=== PATIENT | female | born 1990 | race Caucasian/White ===

== ENCOUNTER 2023-11-17 08:24 | Inpatient (IN) ==
[2023-11-17] MEDS ORDERED: LIDOCAINE 1% LOCAL 20 ML VIAL INFIL PRN (09:01)
[2023-11-17] MEDS ORDERED: OXYTOCIN 30 UNITS/NSS 30 UNITS/500 ML BAG IV PRN ×2 (09:01→15:00)
[2023-11-17] MEDS: LACTATED RINGER'S 1,000 ML IV PRN (09:11)
--- NOTE | 2023-11-17 09:13 | History & Physical Report ---
Date of Service November 17, 2023 Assessment & Plan (1) Normal labor: Plan admit, labs, iv. desires epidural. plan arom thereafter. fhts categ 1. History of Present Illness Chief Complaint: labor Primary Care Provider: NO PCP 33yo at 39+wks ega presents to LD with cc of regular ctx. Patient denies rom, vb. +FM. PNC uncomplicated. PNL rhpos, ri, gbs neg OBH: g1 GYNH: nl paps, no stds Allergies Allergy/AdvReac Type Severity Reaction Status Date / Time No Known Allergies Allergy Verified 11/14/23 11:02 Home Medications Medication Instructions Recorded Confirmed Type Lactobacillus acidophilus PO 04/08/23 11/14/23 History [Probiotic] 21-iron fu-folic acid PO 04/08/23 11/14/23 History [ Complete] vitamin B complex PO 04/08/23 11/14/23 History Patient History Medical History (Updated 11/17/23 @ 09:06 by Moni Christianson MD, FACOG) Varicella vaccination Surgical History S/P wisdom tooth extraction Family History Mother Breast cancer age 44 Denies family history of Ovarian cancer Colorectal cancer Social History Smoking Status: Never smoker Do You Dip or Chew Tobacco: No; Hx Alcohol Use: No Hx Substance Use: No Preferred Language: French Communication Ability: Effective Billing Clinician Required: No Beliefs That Will Affect Care: None marital status: Single marital status details: Francis Terry (37) [phone] Current Living Situation: Significant Other Current Living Situation Comment: Lives with boyfriend current occupational status: employed 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 Other Information That Helps Us Care for You: No Feels Safe at Home: Yes Safety Concerns: Feels Safe At This Time Assistive Devices: None Review of Systems as per Subjective / HPI Physical Exam Constitutional: WD/WN, vitals as above Respiratory: normal respiratory effort, lungs clear to auscultation Cardiovascular: Rate/Rhythm: regular rate and regular rhythm Gastrointestinal (Abdomen): soft gravid nt efw 7-8# Musculoskeletal: tr edema Neurologic: grossly normal Psychiatric: A+Ox3, euthymic affect Genitourinary: Manual OB Exam: + cervical dilation 6 cm, + cervical effacement 100% and + station -1 OB Exam Monitor Tracing: + external FHT monitor used, + external uterine monitor used (q2), + category I and + normal FHT variability Results & Data Vital Signs (Past 12 Hours) Vital Signs Temp Pulse Resp BP 11/17/23 08:42 75 128/77 11/17/23 08:37 98.2 F 75 16 128/77 Coding Level of Care Code None Diagnoses Normal labor O80; Z37.9
[2023-11-17 09:42] LABS: Hemoglobin 12.2 g/dl (12.0-16.0); Mean Corpuscular Hemoglobin 31.4 pg (25.0-34.0); Mean Corpuscular Hgb Conc 33.9 g/dL (32.0-36.0); Mean Corpuscular Volume 92.8 fL (80.0-100.0); Mean Platelet Volume 10.4 fL (9.4-12.4); Platelet Count 203 K/uL (130-400); RDW Coefficient of Variation 13.9 % (11.5-14.5); RDW Standard Deviation 46.9 fL (36.4-46.3); Red Blood Count 3.88 M/uL (4.20-5.40); White Blood Count 9.88 K/ul (4.8-10.8)
[2023-11-17] MEDS ORDERED: SODIUM CHLORIDE 0.9% PF INJ 10 ML VIAL EPI PRN (10:01)
[2023-11-17] MEDS ORDERED: NALBUPHINE HCL 5 MG in SYRINGE 0 ML IV PRN (10:01)
[2023-11-17] MEDS ORDERED: ROPIVACAINE 0.5% PF 5 MG/ML 20 ML VIAL EPI PRN (10:01)
[2023-11-17] MEDS ORDERED: fentaNYL citrate PF 100 MCG/2 ML VIAL EPI PRN (10:01)
[2023-11-17] MEDS ORDERED: LIDOCAINE 2% MPF LOCAL 5 ML VIAL EPI PRN (10:01)
[2023-11-17] MEDS ORDERED: BUPIVACAINE 0.25% PF 30 ML VIAL EPI PRN (10:01)
[2023-11-17] MEDS ORDERED: diphenhydrAMINE 50 MG/ML VIAL IV PRN (10:01)
[2023-11-17] MEDS ORDERED: NALOXONE HCL 0.4 MG/1 ML VIAL/CARP IV PRN (10:01)
[2023-11-17] MEDS ORDERED: NALOXONE HCL 1 MG in SODIUM CHLORIDE 0.9% 1,000 ML IV PRN (10:01)
[2023-11-17] MEDS ORDERED: ePHEDrine sulfate 50 MG/ML AMP IV PRN (10:01)
[2023-11-17] MEDS ORDERED: fentANYL 2 MCG/ML BUPIVacaine 0.125%-NSS 100ML BAG EPI PRN (10:01)
--- NOTE | 2023-11-17 10:01 | Anesthesiology Consultation ---
Date of Service November 17, 2023 Assessment & Plan (1) Encounter for pre-operative examination: Chart Review Chart Review: Patient NOT seen in Pre Admission Testing and Acceptable Risk for Labor Epidural Consults Requested none History Height/Weight Height: 5 ft 6 in Weight: 82.554 kg Allergies Allergy/AdvReac Type Severity Reaction Status Date / Time No Known Allergies Allergy Verified 11/14/23 11:02 Medications Home Medications Medication Instructions Recorded Confirmed Last Taken Lactobacillus acidophilus PO 04/08/23 11/14/23 11/16/23 [Probiotic] 21-iron fu-folic acid PO 04/08/23 11/14/23 11/16/23 [ Complete] vitamin B complex PO 04/08/23 11/14/23 11/16/23 Active Medications Generic Name Dose Route Start Last Admin Trade Name Freq PRN Reason Stop Dose Admin Lactated Ringer's 1,000 mls @ 125 mls/hr 11/17/23 09:01 11/17/23 09:11 Lr IV 11/19/23 09:00 999 mls/hr .Q8H PRN Administration L&D Protocol Protocol Past Medical History Medical History Varicella vaccination Past Family History Family History Mother Breast cancer age 44 Denies family history of Ovarian cancer Colorectal cancer Past Surgical History Surgical History S/P wisdom tooth extraction Social History Smoking Status: Never smoker Do You Dip or Chew Tobacco: No Hx Alcohol Use: No Hx Substance Use: No Physical Exam Vital Signs Last Vital Signs Temp 98.2 F 11/17/23 08:37 Pulse 75 11/17/23 08:42 Resp 16 11/17/23 08:37 BP 128/77 11/17/23 08:42 Testing Laboratory Results 11/17/23 09:21
[2023-11-17] MEDS: fentANYL 2 MCG/ML BUPIVacaine 0.125%-NSS 100ML BAG ONE (10:21)
[2023-11-17] MEDS: LIDOCAINE 2%/EPINEPHRINE 1:200,000 20 ML PF ONE (10:30)
[2023-11-17] MEDS: BUPIVACAINE 0.25% PF 30 ML VIAL ONE (10:31)
[2023-11-17] MEDS: SODIUM CHLORIDE 0.9% PF INJ 10 ML VIAL ONE (11:28)
[2023-11-17] MEDS: fentaNYL citrate PF 100 MCG/2 ML VIAL ONE (11:28)
[2023-11-17] MEDS: fentaNYL citrate PF 100 MCG/2 ML VIAL EPI STA (11:29)
[2023-11-17] MEDS: SODIUM CHLORIDE 0.9% PF INJ 10 ML VIAL EPI STA (11:29)
[2023-11-17] MEDS: BUPIVACAINE 0.25% PF 30 ML VIAL EPI STA (11:29)
[2023-11-17] MEDS: LIDOCAINE 2%/EPINEPHRINE 1:200,000 20 ML PF EPI STA (11:29)
--- NOTE | 2023-11-17 11:47 | Labor Progress Brief Note ---
Date of Service November 17, 2023 Subjective comfortable with epidural Assessment & Plan (1) Normal labor: Plan good cx change. fhts categ 1. anticip Physical Exam Constitutional: WD/WN, vitals as above Genitourinary: Manual OB Exam: + cervical dilation 8 cm, + cervical effacement 100%, + station -1 and + amniotic fluid (arom) clear OB Exam Monitor Tracing: + external FHT monitor used, + external uterine monitor used, + category I and + normal FHT variability Results & Data Vital Signs (Past 12 Hours) Vital Signs Temp Pulse Resp BP Pulse Ox 11/17/23 11:42 65 97 11/17/23 11:37 73 96/57 L 100 11/17/23 11:32 78 100 11/17/23 11:30 18 11/17/23 11:30 18 11/17/23 11:27 82 100 11/17/23 11:23 71 98/56 L 11/17/23 11:22 60 100 11/17/23 11:17 90 100 11/17/23 11:15 18 11/17/23 11:15 18 11/17/23 11:12 89 99 11/17/23 11:07 100 11/17/23 11:07 67 11/17/23 11:07 79 100/59 L 11/17/23 11:03 55 L 99/59 L 11/17/23 11:02 56 L 100 11/17/23 11:00 18 11/17/23 11:00 18 11/17/23 10:57 100 11/17/23 10:57 61 11/17/23 10:57 71 99/57 L 11/17/23 10:52 100 11/17/23 10:52 76 11/17/23 10:52 80 97/58 L 11/17/23 10:48 57 L 100/56 L 11/17/23 10:47 61 100 11/17/23 10:45 18 11/17/23 10:45 18 11/17/23 10:42 62 100 11/17/23 10:41 71 104/62 11/17/23 10:39 68 108/61 11/17/23 10:37 74 108/62 100 11/17/23 10:35 68 103/60 11/17/23 10:33 82 101/59 L 11/17/23 10:32 93 H 100 11/17/23 10:31 68 101/57 L 11/17/23 10:27 67 99 11/17/23 10:25 80 102/58 L 11/17/23 10:22 69 100 11/17/23 10:17 77 100 11/17/23 10:12 85 97 11/17/23 10:07 70 98 11/17/23 08:42 75 128/77 11/17/23 08:37 98.2 F 75 16 128/77 Coding Level of Care Code None Diagnoses Normal labor O80; Z37.9
--- NOTE | 2023-11-17 13:47 | Labor Progress Brief Note ---
Date of Service November 17, 2023 Subjective pt comfortable, feels pressure Assessment & Plan (1) Normal labor: Plan cont 2nd stage. fhts categ 1. Physical Exam Constitutional: WD/WN, vitals as above Genitourinary: Manual OB Exam: + cervical dilation 10 cm, + cervical effacement 100% and + station (pushing effectively) + 3 OB Exam Monitor Tracing: + external FHT monitor used, + external uterine monitor used, + category I and + normal FHT variability Results & Data Vital Signs (Past 12 Hours) Vital Signs Temp Pulse Resp BP Pulse Ox 11/17/23 13:44 95 H 86 L 11/17/23 13:42 91 H 100 11/17/23 13:37 100 11/17/23 13:37 93 H 11/17/23 13:37 85 91 11/17/23 13:32 67 100 11/17/23 13:27 65 100 11/17/23 13:23 72 99/55 L 11/17/23 13:22 69 100 11/17/23 13:17 65 100 11/17/23 13:12 62 100 11/17/23 13:07 72 96/60 L 100 11/17/23 13:02 62 100 11/17/23 13:00 18 11/17/23 13:00 18 11/17/23 12:57 66 100 11/17/23 12:53 77 102/66 11/17/23 12:52 63 100 11/17/23 12:47 66 100 11/17/23 12:42 60 100 11/17/23 12:38 67 101/61 11/17/23 12:37 64 100 11/17/23 12:32 69 100 11/17/23 12:30 18 11/17/23 12:30 18 11/17/23 12:27 73 100 11/17/23 12:23 75 101/59 L 11/17/23 12:22 75 100 11/17/23 12:17 71 100 11/17/23 12:12 65 100 11/17/23 12:08 55 L 104/60 11/17/23 12:07 59 L 100 11/17/23 12:02 60 99 11/17/23 12:00 97.7 F 11/17/23 11:57 56 L 100 11/17/23 11:53 83 100/61 11/17/23 11:52 76 99 11/17/23 11:47 64 100 11/17/23 11:42 65 97 11/17/23 11:37 73 96/57 L 100 11/17/23 11:32 78 100 11/17/23 11:30 18 11/17/23 11:30 18 11/17/23 11:27 82 100 11/17/23 11:23 71 98/56 L 11/17/23 11:22 60 100 11/17/23 11:17 90 100 11/17/23 11:15 18 11/17/23 11:15 18 11/17/23 11:12 89 99 11/17/23 11:07 100 11/17/23 11:07 67 11/17/23 11:07 79 100/59 L 11/17/23 11:03 55 L 99/59 L 11/17/23 11:02 56 L 100 11/17/23 11:00 18 11/17/23 11:00 18 11/17/23 10:57 100 11/17/23 10:57 61 11/17/23 10:57 71 99/57 L 11/17/23 10:52 100 11/17/23 10:52 76 11/17/23 10:52 80 97/58 L 11/17/23 10:48 57 L 100/56 L 11/17/23 10:47 61 100 11/17/23 10:45 18 11/17/23 10:45 18 11/17/23 10:42 62 100 11/17/23 10:41 71 104/62 11/17/23 10:39 68 108/61 11/17/23 10:37 74 108/62 100 11/17/23 10:35 68 103/60 11/17/23 10:33 82 101/59 L 11/17/23 10:32 93 H 100 11/17/23 10:31 68 101/57 L 11/17/23 10:27 67 99 11/17/23 10:25 80 102/58 L 11/17/23 10:22 69 100 11/17/23 10:17 77 100 11/17/23 10:12 85 97 11/17/23 10:07 70 98 11/17/23 08:42 75 128/77 11/17/23 08:37 98.2 F 75 16 128/77 Coding Level of Care Code None Diagnoses Normal labor O80; Z37.9
[2023-11-17] MEDS: miSOPROStoL 200 MCG TAB PR ONE ×2 (14:14→16:26)
--- NOTE | 2023-11-17 14:29 | Delivery Summary ---
Vaginal Delivery Summary Date of Service November 17, 2023 Vaginal Delivery Summary and 2nd Degree LAC The patient dilated to complete and pushed to deliver a viable male infant Apgars 8 and 9 via over 2nd degree perineal laceration. Mouth and nose bulb suctioned at perineum. Shoulders and body delivered with ease. Infant was vigorous and crying at . Cord clamped at 30 seconds of life and to maternal abdomen where the cord was then doubly clamped and cut. Placenta delivered spontaneously and intact, three-vessel cord. Hemostasis not achieved with dilute pitocin and uterine massage, ultimately discovering that her iv site was infiltrated. Bimanual massage and IM methergine and 800mcg rectal cytotec. Uterine tone improving. IV site reestablished and dilute pitocin begun. Cervix and sulci intact. Laceration repaired in routine fashion with 3-0 vicryl. QBL 745 cc. Mother and baby stable in recovery. [facility] Vaginal Delivery Charge Delivery Type Details: and 2nd Degree LAC
[2023-11-17] MEDS: OXYTOCIN 20 UNITS/LR 1,002 ML IV SCH (14:54)
[2023-11-17] MEDS ORDERED: DIPHTHER/TETAN/PERTUS Vaccine (Tdap, Adol/Adult) 0.5mL IM ONE (15:00)
[2023-11-17] MEDS ORDERED: HYDROCORTISONE ACETATE 25 MG SUPP PR PRN (15:00)
[2023-11-17] MEDS ORDERED: ACETAMINOPHEN 325 MG TAB PO PRN (15:00)
[2023-11-17] MEDS ORDERED: bisacodyL 10 MG SUPP PR PRN (15:00)
[2023-11-17] MEDS: OXYTOCIN 10 UNITS/ML VIAL ONE (15:15)
[2023-11-17] MEDS: METHYLERGONOVINE MALEATE 0.2 MG/ML AMP IM ONE (15:15)
[2023-11-17] MEDS: METHYLERGONOVINE MALEATE 0.2 MG/ML AMP IM STA (16:24)
[2023-11-17] MEDS: ePHEDrine sulfate 50 MG/ML AMP ONE (16:25)
[2023-11-17] MEDS: OXYTOCIN 10 UNITS/ML 10ML VIAL IM ONE (16:26)
--- NOTE | 2023-11-17 16:43 | Anesthesia Procedure Note ---
Date of Service November 17, 2023 Anesthesia Post Epidural Note Vital Signs Vital Signs: Temp Pulse Resp BP Pulse Ox 97.9 F 96 H 18 115/71 80 L 11/17/23 15:17 11/17/23 16:37 11/17/23 14:04 11/17/23 16:37 11/17/23 14:03 Notes Mental Status: alert / awake / arousable and participated in evaluation Nausea / Vomiting: adequately controlled Pain: adequately controlled Airway Patency, RR, SpO2: stable & adequate BP & HR: stable & adequate Hydration State: stable & adequate Neuraxial Anesthesia: was administered and sensory block is resolving Anesthetic Complications: no major complications apparent and Pt Satisfied with anesthetic care Epidural: Removed without complications and With tip intact
[2023-11-17] MEDS: BENZOCAINE 20% SPRY 85 APPLN/85 GM CAN EXT PRN (19:23)
[2023-11-17] MEDS: IBUPROFEN 600 MG TAB PO PRN (19:23)
[2023-11-17] MEDS: DOCUSATE SODIUM 100 MG CAP PO SCH (20:58)
--- NOTE | 2023-11-18 06:51 | Obstetrical Progress Note ---
Date of Service November 18, 2023 Assessment & Plan (1) exam: Plan stable, routine care. desires dc home. instructions reviewed. f/u 6wk pp reviewed. breast, rhpos, ri. Day #:: 1 Subjective Ambulation: ambulating normally Voiding: no voiding problems Diet Tolerance:: regular diet Lochia:: Small Feeding Type:: breast feeding no concerns. wants to go home later today Physical Exam Constitutional WD/WN, vitals as above Respiratory normal respiratory effort, lungs clear to auscultation Cardiovascular Rate/Rhythm: regular rate and regular rhythm Gastrointestinal (Abdomen) Inspection/Auscultation: abdomen normal to inspection Percussion/Palpation: abdomen soft Fundus firm 2cm down Musculoskeletal nt calves no edema Neurologic grossly normal Psychiatric A+Ox3, euthymic affect Results & Data Vital Signs (Past 12 Hours) Vital Signs Temp Pulse Resp BP Pulse Ox O2 Del Method 11/18/23 03:20 98.1 F 80 20 109/72 97 Room Air 11/18/23 00:15 98.1 F 64 18 111/68 99 Room Air 11/17/23 19:15 98.4 F 82 18 130/69 98 Room Air
[2023-11-18 07:06] LABS: Hematocrit (blood only) 33.8 % (37.0-47.0); Hemoglobin 11.4 g/dl (12.0-16.0)
[2023-11-18 07:18] VITALS: O2SAT 100
[2023-11-18] MEDS: PRENATAL VITAMIN 1 TAB PO SCH (08:25)
[2023-11-18 13:09] VITALS: BP 122/71; PULSE 67; RESP 18; TEMP 97.3
[2023-11-18] MEDS ORDERED: bisacodyL 5 MG TABEC PO SCH (20:00)
== END 2023-11-18 14:35 | disposition home or self-care (01) | DRG 807 ==
LOC: OPB 08:24 → 4S1 08:26 → 4E1 19:05